=== PATIENT | male | born 1980 | race Hispanic/Latino ===

== ENCOUNTER 2019-10-02 10:09 | Outpatient (CLI) | payer BC ==
--- NOTE | 2019-10-02 12:47 | RAD ---
LEFT LITTLE FINGER 3 VIEWS: Date: 10/02/2019 HISTORY: Injured finger 6 weeks ago. FINDINGS: There are no signs of fracture or dislocation. IMPRESSION: Negative little finger. POS: [facility]
== END 2019-10-02 10:10 | disposition home or self-care (01) ==
LOC: SCSRAD 10:09 → EDSTATUS 10:34
PROVIDERS: ATTEND Family Medicine
DX: S62.639A Displaced fracture of distal phalanx of unspecified finger, initial encounter for closed fracture (principal)